=== PATIENT | female | born 1930 | race Asian ===

== ENCOUNTER 2019-06-12 13:18 | Inpatient (IN) | payer MEDICARE, OTHER ==
[~2019-06-12] VITALS: Ht 154.9 cm; Wt 40.0 kg
[~2019-06-12 13:18] MED LIST: AMLO5TAB9 PO; ASPI81TA39 PO; ATOR10TA84 PO; CHOL100018 PO; FISH1CAP49 PO; INSU100V12 SQ; MULT-959 PO; SITA50 PO
[2019-06-12 13:41] LABS: GLUCOSE,POINT OF CARE 381 MG/DL (70-110)
[2019-06-12 14:43] LABS: EOSINOPHILS % (AUTO) 3.5 % (1.0-6.0); HEMATOCRIT 38.4 % (36-46); HEMOGLOBIN 12.6 g/dL (12.0-16.0); LYMPHOCYTES # (AUTO) 1.1 K/uL (1.0-4.8); LYMPHOCYTES % (AUTO) 16.7 % (22.0-44.0); MEAN CORPUSCULAR HEMOGLOBIN 29.8 pg (26.0-34.0); MEAN CORPUSCULAR HGB CONC 32.7 G/dL (31.0-37.0); MEAN CORPUSCULAR VOLUME 91 fL (80-100); MONOCYTES # (AUTO) 0.8 K/uL (0.1-1.0); MONOCYTES % (AUTO) 12.1 % (2.0-9.0); NEUTROPHILS # (AUTO) 4.6 K/uL (1.8-7.7); NEUTROPHILS % (AUTO) 66.7 % (40.0-70.0); PLATELET COUNT (AUTO) 148 K/uL (150-450); RED BLOOD CELL COUNT(AUTO) 4.22 MIL/uL (4.00-5.20); RED CELL DISTRIBUTION WIDTH 14.7 % (11.5-14.5)
[2019-06-12 14:54] LABS: CALCIUM, TOTAL 8.5 mg/dL (8.8-10.5); CREATININE 2.27 mg/dL (0.60-1.30); POTASSIUM 4.6 mmol/L (3.5-5.1)
[2019-06-12 14:58] LABS: PROTHROMBIN TIME 10.2 SEC (9.4-11.6)
[2019-06-12 15:19] LABS: BILIRUBIN,TOTAL 0.2 mg/dL (0.1-1.0); TOTAL PROTEIN, SERUM 7.4 g/dL (6.4-8.2)
[2019-06-12 15:52] LABS: APPEARANCE,URINE CLOUDY (CLEAR); BILIRUBIN,URINE NEGATIVE (NEGATIVE); GLUCOSE, URINE (UA) 100 mg/dL (NEGATIVE); KETONES,URINE NEGATIVE (NEGATIVE); LEUKOCYTE ESTERASE ,URINE LARGE (NEGATIVE); OCCULT BLOOD,URINE TRACE (NEGATIVE); PH,URINE 6.5 (5.0-8.0); PROTEIN,URINE SEE CONFIRM (NEGATIVE); UROBILINOGEN,URINE 0.2 mg/dL (<=1.0)
[2019-06-12 16:01] LABS: SULFOSALICYLIC ACID,URINE 2+ (Negative)
[2019-06-12 16:02] LABS: BACTERIA,URINE Many /HPF (None Seen); NITRATE,URINE POSITIVE (NEGATIVE); SQUAMOUS EPITHELIAL CELL,UR Few /LPF (None Seen); WBC,URINE 26-50 /HPF (0-5)
[2019-06-12] MEDS ORDERED: CefTRIAXone 1 GM/DEXTROSE 50 ML IV ONE (16:15)
[2019-06-12] MEDS ORDERED: 0.9% SODIUM CHLORIDE 10 ML SYRINGE IVP PRN (18:15)
[2019-06-12] MEDS ORDERED: ACETAMINOPHEN 325 MG TABLET PO PRN (18:15)
[2019-06-12 19:25] LABS: GLUCOSE,POINT OF CARE 263 MG/DL (70-110)
[2019-06-12 21:58] VITALS: BP 149/55
[2019-06-13] VITALS (7 sets, daily range): BP systolic 105–168; BP diastolic 40–88
[2019-06-13 00:43] LABS: GLUCOMETER DEV NAME(LOC) 5S.1; GLUCOSE,POINT OF CARE 147 MG/DL (70-110)
[2019-06-13] MEDS ORDERED: DEXTROSE 50%-WATER 25 GM/50 ML SYRINGE IVP PRN (06:45)
[2019-06-13 07:44] LABS: BASOPHILS % (AUTO) 0.8 % (0.0-2.0); EOSINOPHILS % (AUTO) 4.9 % (1.0-6.0); HEMATOCRIT 34.8 % (36-46); HEMOGLOBIN 11.7 g/dL (12.0-16.0); LYMPHOCYTES # (AUTO) 1.7 K/uL (1.0-4.8); LYMPHOCYTES % (AUTO) 22.3 % (22.0-44.0); MEAN CORPUSCULAR HEMOGLOBIN 30.5 pg (26.0-34.0); MEAN CORPUSCULAR HGB CONC 33.7 G/dL (31.0-37.0); MEAN CORPUSCULAR VOLUME 91 fL (80-100); MONOCYTES # (AUTO) 1.1 K/uL (0.1-1.0); MONOCYTES % (AUTO) 13.7 % (2.0-9.0); NEUTROPHILS # (AUTO) 4.5 K/uL (1.8-7.7); NEUTROPHILS % (AUTO) 58.3 % (40.0-70.0); PLATELET COUNT (AUTO) 141 K/uL (150-450); RED BLOOD CELL COUNT(AUTO) 3.84 MIL/uL (4.00-5.20); RED CELL DISTRIBUTION WIDTH 14.6 % (11.5-14.5)
[2019-06-13] MEDS ORDERED: ACETAMINOPHEN 325 MG TABLET PO PRN (07:45)
[2019-06-13] MEDS ORDERED: SODIUM CHLORIDE 0.9% 1,000 ML IV ONE (07:45)
[2019-06-13 08:17] LABS: ALBUMIN 2.7 g/dL (3.4-5.0); BILIRUBIN,TOTAL 0.2 mg/dL (0.1-1.0); CALCIUM, TOTAL 8.3 mg/dL (8.8-10.5); CREATININE 2.08 mg/dL (0.60-1.30); POTASSIUM 4.1 mmol/L (3.5-5.1); TOTAL PROTEIN, SERUM 6.4 g/dL (6.4-8.2)
[2019-06-13] MEDS: HEPARIN SODIUM,PORCINE 5,000 UNITS/ML VIAL SQ SCH ×2 (08:32→20:35)
[2019-06-13] MEDS: DOCUSATE SODIUM 100 MG CAPSULE PO SCH ×2 (08:33→20:32)
[2019-06-13] MEDS: ASPIRIN 81 MG CHEWABLE TABLET PO SCH (08:33)
[2019-06-13] MEDS: INSULIN LISPRO 100 UNITS/ML SQ PRN ×2 (11:40→17:35)
[2019-06-13 12:05] LABS: GLUCOMETER DEV NAME(LOC) 5N.2; GLUCOSE,POINT OF CARE 254 MG/DL (70-110)
[2019-06-13] MEDS: CefTRIAXone 1 GM/DEXTROSE 50 ML IV SCH (15:02)
[2019-06-13 16:12] LABS: GLUCOMETER DEV NAME(LOC) 5S.1; GLUCOSE,POINT OF CARE 124 MG/DL (70-110)
[2019-06-13 20:06] LABS: GLUCOMETER DEV NAME(LOC) 5N.2; GLUCOSE,POINT OF CARE 206 MG/DL (70-110)
[2019-06-13] MEDS: ATORVASTATIN CALCIUM 10 MG TABLET PO SCH (20:32)
[2019-06-13 22:52] LABS: GLUCOMETER DEV NAME(LOC) 5S.2A; GLUCOSE,POINT OF CARE 125 MG/DL (70-110)
[2019-06-14 05:32] VITALS: BP 174/67
[2019-06-14] MEDS ORDERED: CloNIDine HCL 0.1 MG TABLET PO PRN (06:30)
[2019-06-14 07:03] LABS: GLUCOMETER DEV NAME(LOC) 5N.2; GLUCOSE,POINT OF CARE 124 MG/DL (70-110)
[2019-06-14] MEDS: ASPIRIN 81 MG CHEWABLE TABLET PO SCH (07:57)
[2019-06-14] MEDS: AmLODIPine BESYLATE 5 MG TABLET PO SCH (07:58)
[2019-06-14] MEDS: DOCUSATE SODIUM 100 MG CAPSULE PO SCH ×2 (07:58→20:16)
[2019-06-14] MEDS: HEPARIN SODIUM,PORCINE 5,000 UNITS/ML VIAL SQ SCH ×2 (07:58→20:17)
[2019-06-14 08:52] VITALS: BP 169/65
[2019-06-14] MEDS: INSULIN LISPRO 100 UNITS/ML SQ PRN ×2 (11:35→17:39)
[2019-06-14 11:59] VITALS: BP 132/50
[2019-06-14 16:09] VITALS: BP 139/59
[2019-06-14] MEDS: CefTRIAXone 1 GM/DEXTROSE 50 ML IV SCH (16:32)
[2019-06-14] MEDS ORDERED: BACTDSB PO (17:55)
[2019-06-14 20:00] VITALS: BP 131/55
[2019-06-14] MEDS: ATORVASTATIN CALCIUM 10 MG TABLET PO SCH (20:16)
[2019-06-15 00:29] VITALS: BP 136/60
[2019-06-15 04:43] VITALS: BP 151/60
[2019-06-15 05:43] LABS: GLUCOMETER DEV NAME(LOC) 5N.2; GLUCOSE,POINT OF CARE 168 MG/DL (70-110)
[2019-06-15 05:43] LABS: GLUCOMETER DEV NAME(LOC) 5N.2; GLUCOSE,POINT OF CARE 333 MG/DL (70-110)
[2019-06-15 05:44] LABS: GLUCOMETER DEV NAME(LOC) 5N.2; GLUCOSE,POINT OF CARE 119 MG/DL (70-110)
[2019-06-15 07:37] LABS: GLUCOMETER DEV NAME(LOC) 5N.2; GLUCOSE,POINT OF CARE 124 MG/DL (70-110)
[2019-06-15 08:02] VITALS: BP 174/54
[2019-06-15] MEDS: DOCUSATE SODIUM 100 MG CAPSULE PO SCH ×2 (08:28→21:10)
[2019-06-15] MEDS: AmLODIPine BESYLATE 5 MG TABLET PO SCH (08:28)
[2019-06-15] MEDS: HEPARIN SODIUM,PORCINE 5,000 UNITS/ML VIAL SQ SCH ×2 (08:28→21:10)
[2019-06-15] MEDS: ASPIRIN 81 MG CHEWABLE TABLET PO SCH (08:28)
[2019-06-15 11:12] VITALS: BP 176/95
[2019-06-15] MEDS: INSULIN LISPRO 100 UNITS/ML SQ PRN ×2 (11:47→21:12)
[2019-06-15 15:19] VITALS: BP 164/71
[2019-06-15] MEDS: CefTRIAXone 1 GM/DEXTROSE 50 ML IV SCH (15:32)
[2019-06-15] MEDS ORDERED: HydrALAZINE HCL 20 MG/ML VIAL IVP PRN (19:30)
[2019-06-15 19:35] VITALS: BP 144/66
[2019-06-15] MEDS ORDERED: HydrALAZINE HCL 20 MG/ML VIAL IVP SCH (20:00)
[2019-06-15] MEDS: ATORVASTATIN CALCIUM 10 MG TABLET PO SCH (21:10)
[2019-06-16 05:47] VITALS: BP 151/61
[2019-06-16 07:03] LABS: GLUCOMETER DEV NAME(LOC) 5N.2; GLUCOSE,POINT OF CARE 195 MG/DL (70-110)
[2019-06-16 07:47] VITALS: BP 150/61
[2019-06-16] MEDS: ASPIRIN 81 MG CHEWABLE TABLET PO SCH (08:02)
[2019-06-16] MEDS: DOCUSATE SODIUM 100 MG CAPSULE PO SCH (08:02)
[2019-06-16] MEDS: HEPARIN SODIUM,PORCINE 5,000 UNITS/ML VIAL SQ SCH (08:03)
[2019-06-16] MEDS ORDERED: AmLODIPine BESYLATE 10 MG TABLET PO SCH (09:00)
[2019-06-16 20:37] LABS: GLUCOMETER DEV NAME(LOC) 5S.2A; GLUCOSE,POINT OF CARE 139 MG/DL (70-110)
== END 2019-06-16 11:20 | disposition home or self-care (01) | DRG 683 ==
LOC: EMS 13:19 → 5S 19:30
PROVIDERS: ADMIT Internal Medicine; ATTEND Internal Medicine
DX: N17.9 Acute kidney failure, unspecified (principal); N39.0 Urinary tract infection, site not specified; N18.4 Chronic kidney disease, stage 4 (severe); E11.649 Type 2 diabetes mellitus with hypoglycemia without coma; B96.4 Proteus (mirabilis) (morganii) as the cause of diseases classified elsewhere; B96.89 Other specified bacterial agents as the cause of diseases classified elsewhere; M81.0 Age-related osteoporosis without current pathological fracture; E11.22 Type 2 diabetes mellitus with diabetic chronic kidney disease; E78.5 Hyperlipidemia, unspecified; I12.9 Hypertensive chronic kidney disease with stage 1 through stage 4 chronic kidney disease, or unspecified chronic kidney disease; Z79.4 Long term (current) use of insulin; Z79.82 Long term (current) use of aspirin; Z79.899 Other long term (current) drug therapy; Z86.73 Personal history of transient ischemic attack (TIA), and cerebral infarction without residual deficits
CPT/HCPCS: 70450; 76770; 87086; 93005; 93306; 93880; J0696; J1644; J7030